=== PATIENT | male | born 1975 | race Caucasian/White ===

== ENCOUNTER 2018-09-23 14:56 | Emergency (ER) | payer OTHER ==
[2018-09-23] MEDS ORDERED: chlordiazePOXIDE 25 MG CAP PO ONE (15:59)
[2018-09-23] MEDS ORDERED: chlordiazePOXIDE 25 MG CAP ONE (16:00)
--- NOTE | 2018-09-23 16:00 | EDPHY ---
H & P Time Seen by Provider: 09/23/18 15:47 HPI/ROS: HPI Alcohol intoxication. 42-year-old male by ambulance from the [facility]. This patient has a history of recent alcohol and cocaine abuse. He was sent here from the [facility] because they thought he was too unstable secondary to his polysubstance abuse. He states that his last drink of alcohol was about 8 hr ago and his last use of cocaine which she snorts was a little more than 8 hr ago. At this time he has no complaints other than feeling like he needs treatment for detox of alcohol. ROS: Constitutional: No fever, no chills. As above. Respiratory: No cough. No shortness of breath. Cardiac: No chest pain, no palpitations. Gastrointestinal: No abdominal pain, no vomiting, no diarrhea. Musculoskeletal: No back pain. No neck pain. No myalgias or arthralgias. Neurological: No headache. No focal weakness or altered sensation. Past medical history: Alcohol abuse, polysubstance abuse, orthopedic surgeries. Social history: Currently homeless. As above. Here by himself. Smoker. Physical Exam: General Appearance: Alert, he does not appear in distress. This patient is responding to questions appropriately and in full sentences. This patient appears well-hydrated and well-nourished. Eyes: Pupils equal and round no pallor or injection. No lid edema, erythema or injection. Respiratory: There are no retractions, lungs are clear to auscultation with good air movement bilaterally. Cardiovascular: Regular rate and rhythm. Mild tachycardia. No murmur. Gastrointestinal: Abdomen is soft and nontender, no masses, bowel sounds normal. No focal tenderness at McBurney's point. No Blanton sign. Neurological: Motor sensory function is grossly intact. Cranial nerves are normal. Gait is normal. Mild resting tremor. Skin: Warm and dry, no rashes. Musculoskeletal: Neck is supple and nontender. Extremities are symmetrical. All joints range without pain or impingement. Psychiatric: No agitation. No depression. Database: EKG: EKG time is 4:03 p.m.; EKG shows a narrow complex normal sinus tachycardia with a ventricular rate of 103. Right axis deviation noted. The TN, QRS, QT intervals are within normal limits. There are no ST-T wave changes indicative of ischemic or injury pattern. No evidence of right heart strain. Interpreted by me. Imaging: Procedures: Emergency department course: Triage vital signs reviewed. The patient appears stable. He is mildly tremulous. He tells me he is high anxiety and asking for some Librium. He will be given 50 mg of oral Librium. EKG will be obtained to evaluate for any possible cocaine toxicity. I feel he is stable however for discharge either to home or back to the [facility]. 4:30 p.m., the patient was re-evaluated. He is up and ambulatory under his own power. I do not feel he requires any further emergency department management. He declines going back to the [facility]. He is requesting discharge. Follow-up and return to emergency department precautions reviewed with him. All of his questions were answered. He was discharged from the emergency department in good condition. Differential Diagnosis: The differential diagnosis on this patient includes but is not limited to mild alcohol withdrawal, history of alcohol abuse and polysubstance abuse. This represents a partial list of diagnoses considered. These considerations are based on history, physical exam, past history, reassessment and diagnostic testing. Smoking Status: Current every day smoker Constitutional: Initial Vital Signs Temperature (C) 37 C 09/23/18 15:00 Heart Rate 120 H 09/23/18 15:00 Respiratory Rate 18 09/23/18 15:00 Blood Pressure 143/92 H 09/23/18 15:00 O2 Sat (%) 96 09/23/18 15:00 O2 Delivery Mode Room Air Allergies/Adverse Reactions: morphine Allergy (Verified 09/23/18 14:59) Home Medications: Medication Instructions Recorded NK [No Known Home Meds] 03/20/16 Medical Decision Making - Data Points Medications Given: Discontinued Medications Chlordiazepoxide HCl (Librium) 50 mg PO EDNOW ONE Stop: 09/23/18 16:00 Last Admin: 09/23/18 16:05 Dose: 50 mg Departure - Departure Disposition: Home, Routine, Self-Care Clinical Impression: Alcohol abuse, Polysubstance abuse Condition: Good Instructions: Abuse of Alcohol (ED) Additional Instructions: Read and follow provided instructions. Follow-up with your primary care physician or at [facility] in 1-2 days for re-evaluation and discussion of detox program options. Return to the emergency department for worsening symptoms or other serious concerns. Referrals: NONE *PRIMARY CARE P,. [Primary Care Provider] - As per Instructions
[2018-09-23 18:10] VITALS: BP 123/69
--- NOTE | 2018-09-23 21:20 | CPEKG ---
Test Reason : OPEN Blood Pressure : / mmHG Vent. Rate : 103 BPM Atrial Rate : 104 BPM P-R Int : 137 ms QRS Dur : 106 ms QT Int : 356 ms P-R-T Axes : 071 121 043 degrees QTc Int : 466 ms Sinus tachycardia Right axis deviation Confirmed by Zak King ([id number] on 09/23/2018 9:19:58 PM Referred By: Confirmed By:Zak King
== END 2018-09-23 18:07 | disposition home or self-care (01) ==
DX: F10.120 Alcohol abuse with intoxication, uncomplicated (principal); F19.10 Other psychoactive substance abuse, uncomplicated; F17.200 Nicotine dependence, unspecified, uncomplicated